=== PATIENT | male | born 1960 | race African-American/Black ===

== ENCOUNTER 2020-03-14 02:38 | Inpatient (IN) | payer MEDICAID ==
[~2020-03-14] VITALS: Ht 185.4 cm; Wt 78.0 kg
[2020-03-14] VITALS (53 sets, daily range): BP systolic 91–157; BP diastolic 57–95
[2020-03-14] MEDS ORDERED: HYDROCODONE/ACETAMINOPHEN 5/325MG TABLET PO STA (03:27)
[2020-03-14] MEDS ORDERED: LIDOCAINE 1%/EPI 1:100,000 10 ML VIAL IJ ONE (03:30)
[2020-03-14] MEDS ORDERED: BACITRACIN ZINC OINT UDPKT TOP ONE (03:30)
[2020-03-14] MEDS ORDERED: LEVETIRACETAM 500MG PREMIX 100 ML IV ONE (05:30)
[2020-03-14] MEDS ORDERED: ONDANSETRON HCL 4MG/2ML INJ IV STA (05:35)
[2020-03-14] MEDS ORDERED: SODIUM CHLORIDE 0.9% 1,000 ML IV ONE (05:37)
[2020-03-14 06:21] LABS: BASOPHILS % 0.6 % (0.0-2.0); EOSINOPHILS % 0.1 % (0.0-5.0); HEMOGLOBIN. 12.7 g/dL (14.0-18.0); LYMPHOCYTES % 13.4 % (20.0-50.0); MEAN CORPUSCULAR HEMOGLOBIN 29.9 pg (28.0-32.0); MEAN CORPUSCULAR VOLUME 87.5 fL (80.0-94.0); MEAN PLATELET VOLUME 7.4 fl (7.4-10.4); MONOCYTES % 7.8 % (2.0-8.0); NEUTROPHILS % 78.1 % (40.0-76.0); PLATELET 255 x1000/uL (130-400); RED BLOOD CELL COUNT 4.23 mill/uL (4.7-6.1); RED CELL DISTRIBUTION WIDTH 15.2 % (11.6-14.6)
[2020-03-14 06:31] LABS: CHLORIDE 104 mEq/L (98-107)
[2020-03-14 06:35] LABS: ETHANOL BLOOD < 10 mg/dL
[2020-03-14] MEDS ORDERED: IOHEXOL-300 100 ML BOTTLE ONE (07:10)
[2020-03-14] MEDS ORDERED: MORPHINE SULFATE 2 MG/ML CPJ (NOT FOR IM USE) IV PRN (07:30)
[2020-03-14] MEDS ORDERED: ONDANSETRON HCL 4MG/2ML INJ IV PRN (08:00)
[2020-03-14] MEDS ORDERED: CLONIDINE 0.1MG TABLET PO PRN (08:00)
[2020-03-14] MEDS ORDERED: MAGNESIUM/ALUMINUM HYDROXIDE/SIMETHICONE 30ML UDC PO PRN (08:00)
[2020-03-14] MEDS ORDERED: IPRATROPIUM/ALBUTEROL 0.5-3(2.5)MG/3ML NEB HHN PRN (08:00)
[2020-03-14] MEDS ORDERED: GUAIFENESIN 200MG/10ML SUGAR FREE UDC PO PRN (08:00)
[2020-03-14] MEDS ORDERED: DIPHENHYDRAMINE 50MG/ML VIAL IV PRN (08:00)
[2020-03-14] MEDS ORDERED: DOCUSATE SODIUM 100MG CAPSULE PO PRN (08:00)
[2020-03-14] MEDS ORDERED: HYDRALAZINE 20MG/ML VIAL IV PRN (08:00)
[2020-03-14] MEDS ORDERED: HYDROCODONE/ACETAMINOPHEN 10/325MG TABLET PO PRN (08:00)
[2020-03-14] MEDS ORDERED: ACETAMINOPHEN 325MG TABLET PO PRN (08:00)
[2020-03-14] MEDS ORDERED: LORAZEPAM 2MG/ML CPJ IV PRN (08:00)
[2020-03-14 10:53] LABS: CLARITY URINE CLEAR (CLEAR); KETONES URINE NEGATIVE (NEGATIVE); LEUKOCYTE ESTERASE URINE NEGATIVE (NEGATIVE); NITRITE URINE NEGATIVE (NEGATIVE); OCCULT BLOOD URINE TRACE (NEGATIVE); PH URINE 6.5 (4.5-8.0); PROTEIN URINE NEGATIVE (NEGATIVE); SPECIFIC GRAVITY URINE 1.006 (1.005-1.030); UROBILINOGEN URINE 0.2 E.U./dL (0.2-1.0)
[2020-03-14 10:54] LABS: COLOR URINE PALE YELLOW (YELLOW)
[2020-03-14] MEDS ORDERED: NICARDIPINE 100 MG in SODIUM CHLORIDE 0.9% 60 ML IV PRN ×2 (11:00→11:15)
[2020-03-14 11:11] LABS: *AMPHETAMINES SCREEN URINE NEGATIVE (NEGATIVE); *BARBITURATES SCREEN URINE NEGATIVE (NEGATIVE); *BENZODIAZEPINES SCREEN URINE NEGATIVE (NEGATIVE); *COCAINE SCREEN URINE NEGATIVE (NEGATIVE); METHADONE URINE SCREEN NEGATIVE (NEGATIVE); OPIATES URINE SCREEN NEGATIVE (NEGATIVE)
[2020-03-14 11:13] LABS: CANNABINOID URINE SCREEN NEGATIVE (NEGATIVE); PHENCYCLIDINE URINE SCREEN NEGATIVE (NEGATIVE)
[2020-03-14] MEDS: DEXT 5%/LACTATED RINGERS 1,000 ML IV SCH (11:13)
[2020-03-14] MEDS ORDERED: SODIUM CHLORIDE 0.9% INJ 3ML FLUSH IVF SCH (14:00)
[2020-03-14] MEDS: HYDRALAZINE HCL 50MG TABLET PO SCH ×2 (15:33→21:42)
[2020-03-14] MEDS ORDERED: LEVETIRACETAM 500MG PREMIX 100 ML IV SCH ×2 (21:00→22:00)
[2020-03-14] MEDS: MORPHINE SULFATE 2 MG/ML CPJ (NOT FOR IM USE) IV PRN (21:45)
[2020-03-15] VITALS (32 sets, daily range): BP systolic 103–142; BP diastolic 39–81
[2020-03-15] MEDS: DEXT 5%/LACTATED RINGERS 1,000 ML IV SCH (01:17)
[2020-03-15] MEDS: MORPHINE SULFATE 2 MG/ML CPJ (NOT FOR IM USE) IV PRN ×2 (02:14→06:43)
[2020-03-15 05:44] LABS: CHLORIDE 104 mEq/L (98-107)
[2020-03-15 06:07] LABS: BASOPHILS % 0.5 % (0.0-2.0); EOSINOPHILS % 0.7 % (0.0-5.0); HEMATOCRIT. 37.6 % (42.0-52.0); HEMOGLOBIN. 12.7 g/dL (14.0-18.0); LYMPHOCYTES % 25.3 % (20.0-50.0); MEAN CORPUSCULAR VOLUME 88.9 fL (80.0-94.0); MEAN PLATELET VOLUME 7.6 fl (7.4-10.4); MONOCYTES % 11.2 % (2.0-8.0); NEUTROPHILS % 62.3 % (40.0-76.0); PLATELET 236 x1000/uL (130-400); RED BLOOD CELL COUNT 4.23 mill/uL (4.7-6.1); RED CELL DISTRIBUTION WIDTH 15.1 % (11.6-14.6)
[2020-03-15] MEDS: HYDRALAZINE HCL 50MG TABLET PO SCH (06:42)
[2020-03-15] MEDS ORDERED: NICOTINE 14MG PATCH TD SCH ×2 (08:30→09:00)
== END 2020-03-15 09:55 | disposition left against medical advice (07) | DRG 912 ==
LOC: ER 03:00 → EDBEDREQSVC 08:14 → ENRESERV 09:53 → MICUNO 10:37
PROVIDERS: ADMIT Internal Medicine; ATTEND Internal Medicine
PROC: 08Q0XZZ Repair Right Eye, External Approach (ICD-10-PCS; principal; 2020-03-14)
DX: S06.5X9A Traumatic subdural hemorrhage with loss of consciousness of unspecified duration, initial encounter (principal); S22.41XA Multiple fractures of ribs, right side, initial encounter for closed fracture; I10 Essential (primary) hypertension; E46 Unspecified protein-calorie malnutrition; F31.9 Bipolar disorder, unspecified; Y04.0XXA Assault by unarmed brawl or fight, initial encounter; F20.9 Schizophrenia, unspecified; E87.6 Hypokalemia; F17.210 Nicotine dependence, cigarettes, uncomplicated; S27.0XXA Traumatic pneumothorax, initial encounter; S01.81XA Laceration without foreign body of other part of head, initial encounter; R74.0 Nonspecific elevation of levels of transaminase and lactic acid dehydrogenase [LDH]; Z60.2 Problems related to living alone; Z53.21 Procedure and treatment not carried out due to patient leaving prior to being seen by health care provider; Z68.22 Body mass index [BMI] 22.0-22.9, adult; Y93.89 Activity, other specified; Y92.89 Other specified places as the place of occurrence of the external cause; Y99.8 Other external cause status; Z59.0 Homelessness
CPT/HCPCS: 36415; 70486; 71045; 71111; 74177; 80053; 80305; 80320; 81003; 85025; 93005; 99285; J0360; J1953; J2270; J2405; J3490; J7030; J7050; Q9967; G0480